=== PATIENT | female | born 1960 | race Caucasian/White ===

== ENCOUNTER → 2023-03-24 | Outpatient (CLI) | payer MEDICARE ==
--- NOTE | 2023-03-24 14:07 | Diagnostic Imaging Report ---
PROCEDURE: MRI lumbar spine. TECHNIQUE: Multiplanar, multisequence MRI of the lumbar spine was performed without contrast. INDICATION: Chronic lower back pain. Paresthesias of the lower extremities. COMPARISON: None FINDINGS: For the purposes of this exam, last well-formed disc space is noted at the L5-S1 level. Static alignment of the lumbar spine is maintained. There is no significant anteroretrolisthesis. There is no evidence of jumped facets. Vertebral body heights are preserved. There is no acute fracture. Facet edema on the right at L3 is noted. There is surrounding soft tissue edema as well. This is favored to be degenerative in nature. Otherwise, marrow signal is within normal limits. Note is made of mild multilevel intervertebral disc height loss. Visualized portions of distal cord are unremarkable. Conus terminates at approximately the T12-L1 level. No abnormal intrathecal filling defects are seen. Pre and paravertebral soft tissue structures are unremarkable. Axial images demonstrate the following: T12-L1 and L1-L2: There is no large disc bulge or focal protrusion. There is bilateral ligamentum flavum laxity and facet arthropathy, but no significant spinal canal or neuroforaminal stenosis. L2-L3: There is mild posterior disc bulge, right greater than left. There is also bilateral ligamentum flavum laxity and facet arthropathy. As a result, there is minimal narrowing of the spinal canal and mild narrowing of the right neuroforamen. Left neuroforamen is unremarkable. L3-L4: There is broad-based posterior disc bulge and bilateral ligamentum flavum laxity and facet arthropathy. As a result, there is mild narrowing of the spinal canal and bilateral neural foramen. L4-L5: There is broad-based posterior disc bulge and bilateral ligamentum flavum laxity and facet arthropathy. As a result, there is mild narrowing of the spinal canal and bilateral neural foramen. L5-S1: There is mild broad-based posterior disc osteophyte complex formation and bilateral facet arthropathy. As a result, there is minimal narrowing of bilateral neural foramen. Spinal canal is unremarkable. IMPRESSION: 1. Multilevel degenerative changes lumbar spine as above. 2. No acute fracture or dislocation. Dictated by: Dictated on workstation # [id number]
== END ==
LOC: RAD 12:55 → EDBD 14:00
PROVIDERS: ATTEND Nurse Practitioner Family
DX: M45.2 Ankylosing spondylitis of cervical region (principal); M47.816 Spondylosis without myelopathy or radiculopathy, lumbar region; M51.26 Other intervertebral disc displacement, lumbar region; M48.061 Spinal stenosis, lumbar region without neurogenic claudication; M25.78 Osteophyte, vertebrae; M47.817 Spondylosis without myelopathy or radiculopathy, lumbosacral region
CPT/HCPCS: 72148